=== PATIENT | female | born 1985 | race Asian ===

== ENCOUNTER 2022-03-31 06:38 | Emergency (ER) | payer OTHER ==
[~2022-03-31] VITALS: Ht 157.5 cm; Wt 65.3 kg
[2022-03-31 06:49] VITALS: BP 101/68
--- NOTE | 2022-03-31 06:56 | NUR ---
patient to lobby
--- NOTE | 2022-03-31 07:18 | NUR ---
swabs- covid, brandi, and strep sent to lab. received by [facility] [facility] tech
[2022-03-31] MEDS ORDERED: ACET160L60 PO (07:53)
[2022-03-31] MEDS ORDERED: BENZ-300 PO (07:55)
--- NOTE | 2022-03-31 08:48 | NUR ---
Patient discharged with v/s stable. Written and verbal after care instructions ABOUT VIRAL ILLNESS AND PHARYNGITIS given and explained. Patient alert, oriented and verbalized understanding of instructions. Ambulatory with steady gait. All questions addressed prior to discharge. ID band removed. Patient advised to follow up with PMD. Rx of CHILDRENS ACETAMINOPHEN AND CEPACOL SORE THROAT LOZENGE given. Patient educated on indication of medication including possible reaction and side effects. Opportunity to ask questions provided and answered.
== END 2022-03-31 08:48 | disposition home or self-care (01) ==
LOC: MED 06:38
DX: O98.512 Other viral diseases complicating pregnancy, second trimester (principal); J02.8 Acute pharyngitis due to other specified organisms; B97.89 Other viral agents as the cause of diseases classified elsewhere; Z20.822 Contact with and (suspected) exposure to COVID-19; O26.891 Other specified pregnancy related conditions, first trimester; R59.0 Localized enlarged lymph nodes; R00.0 Tachycardia, unspecified; Z3A.24 24 weeks gestation of pregnancy; Z79.899 Other long term (current) drug therapy
CPT/HCPCS: 87081; 99283

== ENCOUNTER 2022-04-16 15:05 | Observation (INO) | payer OTHER ==
[~2022-04-16] VITALS: Ht 160 cm; Wt 65.8 kg
[~2022-04-16 15:05] MED LIST: ACET160L60 PO; BENZ-300 PO
[2022-04-16] MEDS ORDERED: ACETAMINOPHEN 325 MG TAB PO PRN (16:05)
[2022-04-16] MEDS ORDERED: ACETAMINOPHEN 325 MG TAB ONE (16:13)
[2022-04-16 16:37] VITALS: BP 116/64
[2022-04-16] MEDS ORDERED: PNV91TAB8 PO (17:56)
== END 2022-04-16 18:45 | disposition home or self-care (01) ==
LOC: MLD 15:05
PROVIDERS: ADMIT Obstetrics & Gynecology; ATTEND Obstetrics & Gynecology
DX: O26.893 Other specified pregnancy related conditions, third trimester (principal); Z20.822 Contact with and (suspected) exposure to COVID-19; R10.9 Unspecified abdominal pain; Z3A.28 28 weeks gestation of pregnancy
CPT/HCPCS: 59025; 76805; 81000; 87426; G0378; Q0092